=== PATIENT | female | born 1960 | race Caucasian/White ===

== ENCOUNTER → 2016-09-29 | Outpatient (CLI) | payer BC | LOC: WI 08:49 | PROVIDERS: ATTEND Internal Medicine Geriatric Medicine | DX: Z12.31 Encounter for screening mammogram for malignant neoplasm of breast (principal) | CPT/HCPCS: 77067; G0202 ==

== ENCOUNTER → 2016-11-18 | Outpatient (CLI) | payer BC ==
[2016-11-18 11:37] LABS: ABSOLUTE BASOPHILS # (AUTO) 0.1 10^3/uL (0.0-0.2); ABSOLUTE EOSINOPHILS # (AUTO) 0.1 10^3/uL (0.0-0.6); ABSOLUTE LYMPHOCYTES (AUTO) 1.9 10^3/uL (0.5-4.7); ABSOLUTE MONOCYTES (AUTO) 0.6 10^3/uL (0.1-1.4); ABSOLUTE NEUT (AUTO) 6.8 10^3/uL (1.7-8.2); BASOPHILS % (AUTO) 0.8 % (0-2); EOSINOPHILS % (AUTO) 1.6 % (0-6); HEMATOCRIT 35.7 % (36.0-47.0); HEMOGLOBIN 11.9 g/dL (12.0-15.5); LYMPHOCYTES % (AUTO) 19.8 % (13-45); MEAN CORPUSCULAR HEMOGLOBIN 27.2 pg (27.0-33.4); MEAN CORPUSCULAR HGB CONC 33.3 g/dL (32.0-36.0); MEAN CORPUSCULAR VOLUME 82 fl (80-97); MONOCYTES % (AUTO) 6.5 % (3-13); RED BLOOD COUNT 4.36 10^6/uL (3.72-5.28); RED CELL DISTRIBUTION WIDTH 13.7 % (11.5-14.0); SEGMENTED NEUTROPHILS % (AUTO) 71.3 % (42-78); WHITE BLOOD COUNT 9.4 10^3/uL (4.0-10.5)
[2016-11-18 11:53] LABS: ALANINE AMINOTRANSFERASE 44 U/L (9-52); ALBUMIN 4.4 g/dL (3.5-5.0); ALKALINE PHOSPHATASE 118 U/L (38-126); ANION GAP 13 (5-19); ASPARTATE AMINO TRANSFERASE 29 U/L (14-36); BILIRUBIN,DIRECT 0.2 mg/dL (0.0-0.4); BILIRUBIN,TOTAL 0.4 mg/dL (0.2-1.3); BLOOD UREA NITROGEN 20 mg/dL (7-20); CARBON DIOXIDE 30 mmol/L (22-30); CHLORIDE 99 mmol/L (98-107); CHOLESTEROL 242.63 mg/dL (0-200); CREATININE RESULT 0.83 mg/dL (0.52-1.25); Direct HDL 34 mg/dL (>40); GLUCOSE 118 mg/dL (75-110); SODIUM 142.2 mmol/L (137-145); TOTAL PROTEIN 7.1 g/dL (6.3-8.2); TRIGLYCERIDES 353 mg/dL (<150)
[2016-11-18 12:04] LABS: DIRECT LDL 119 mg/dL (<100)
[2016-11-18 12:08] LABS: POTASSIUM 4.9 mmol/L (3.6-5.0); VLDL CHOLESTEROL 70.6 mg/dL (10-31)
== END ==
LOC: OD 10:28
PROVIDERS: ATTEND Nurse Practitioner Psychiatric/Mental Health
DX: Z00.01 Encounter for general adult medical examination with abnormal findings (principal)
CPT/HCPCS: 36415; 80053; 80061; 84443; 85025

== ENCOUNTER → 2019-04-29 | Outpatient (CLI) | payer BC ==
[2019-04-29 17:05] LABS: ABSOLUTE BASOPHILS # (AUTO) 0.1 10^3/uL (0.0-0.2); ABSOLUTE EOSINOPHILS # (AUTO) 0.1 10^3/uL (0.0-0.6); ABSOLUTE LYMPHOCYTES (AUTO) 2.1 10^3/uL (0.5-4.7); ABSOLUTE MONOCYTES (AUTO) 0.7 10^3/uL (0.1-1.4); ABSOLUTE NEUT (AUTO) 10.7 10^3/uL (1.7-8.2); BASOPHILS % (AUTO) 0.6 % (0-2); HEMATOCRIT 37.8 % (36.0-47.0); HEMOGLOBIN 12.3 g/dL (12.0-15.5); LYMPHOCYTES % (AUTO) 15.6 % (13-45); MEAN CORPUSCULAR HEMOGLOBIN 27.4 pg (27.0-33.4); MEAN CORPUSCULAR HGB CONC 32.6 g/dL (32.0-36.0); MEAN CORPUSCULAR VOLUME 84 fl (80-97); MONOCYTES % (AUTO) 4.9 % (3-13); PLATELET COUNT 258 10^3/uL (150-450); RED BLOOD COUNT 4.49 10^6/uL (3.72-5.28); RED CELL DISTRIBUTION WIDTH 13.7 % (11.5-14.0); SEGMENTED NEUTROPHILS % (AUTO) 77.9 % (42-78); TOTAL CELLS COUNTED % (AUTO) 100 %; WHITE BLOOD COUNT 13.7 10^3/uL (4.0-10.5)
[2019-04-29 17:26] LABS: ALBUMIN 4.4 g/dL (3.5-5.0); ALKALINE PHOSPHATASE 102 U/L (38-126); AMYLASE 48 U/L (30-110); ANION GAP 12 (5-19); ASPARTATE AMINO TRANSFERASE 32 U/L (14-36); BILIRUBIN,DIRECT 0.2 mg/dL (0.0-0.4); BILIRUBIN,TOTAL 0.2 mg/dL (0.2-1.3); BLOOD UREA NITROGEN 38 mg/dL (7-20); C-REACTIVE PROTEIN 15.1 mg/L (<10.0); CARBON DIOXIDE 25 mmol/L (22-30); CHLORIDE 99 mmol/L (98-107); GLUCOSE 175 mg/dL (75-110); TOTAL PROTEIN 7.1 g/dL (6.3-8.2)
[2019-04-29 17:50] LABS: ERYTHROCYTE SEDIMENTATION RATE 31 mm/hr (0-30)
== END ==
LOC: LAB 16:46
PROVIDERS: ATTEND Family Medicine
DX: R10.9 Unspecified abdominal pain (principal)
CPT/HCPCS: 36415; 80053; 82150; 82977; 83690; 85025; 85652; 86140

== ENCOUNTER → 2019-04-30 | Outpatient (CLI) | payer BC ==
--- NOTE | 2019-04-30 20:56 | RADIOLOGY REPORT (SQ) ---
CT ABDOMEN PELVIS WITH IV CONTRAST EXAM DATE: 04/30/2019 5:05 PM CDT HISTORY: Abdominal pain. COMPARISON: 12/29/2014 TECHNIQUE: CT scan of the abdomen and pelvis was performed with IV contrast. This exam was performed according to our departmental dose-optimization program, which includes automated exposure control, adjustment of the mA and/or kV according to patient size and/or use of iterative reconstruction technique. FINDINGS: The lung bases are clear. No pleural or pericardial effusions. There has been a prior cholecystectomy. Liver, spleen, pancreas, adrenal glands, and kidneys are unremarkable. Simple cyst in the left kidney is seen. The uterus is atrophic. No small bowel obstruction. The appendix is normal. No evidence of acute diverticulitis. No adenopathy, free fluid, or free air is identified. Prior ventral hernia repair is noted. The aorta is normal caliber. There are mild degenerative changes of the spine. IMPRESSION: No acute abdominal or pelvic pathology.
== END ==
LOC: RAD 17:01
PROVIDERS: ATTEND Family Medicine
DX: R10.9 Unspecified abdominal pain (principal); Z90.49 Acquired absence of other specified parts of digestive tract
CPT/HCPCS: 74177

== ENCOUNTER 2019-11-04 16:46 | Emergency (ER) | payer SELFPAY ==
[2019-11-04] MEDS ORDERED: DIPHENHYDRAMINE HCL 25 MG CAPSULE PO ONE (17:41)
[2019-11-04] MEDS ORDERED: METOCLOPRAMIDE HCL 10 MG TABLET PO ONE (17:41)
--- NOTE | 2019-11-04 17:44 | ER Document Report ---
ED Medical Screen (RME) - General Chief Complaint: Headache Stated Complaint: HEADACHE Time Seen by Provider: 11/04/19 17:32 Primary Care Provider: VIKA KIRKPATRICK MD [Primary Care Provider] - Follow up as needed Mode of Arrival: Ambulatory Information source: Patient, Relative Notes: 59-year-old female with history of cluster headaches presents to the emergency department with complaints of a sharp headache pain on the left side of her confucianism that radiates into her jaw since earlier today. Reports she had some chest pressure last night that made her feel short of breath. Denies history of cardiac disease, denies history of stroke. Reports approximately 4 days ago she was evaluated and treated with prednisone for ear pressure. She reports she does have history of migraines but has not had to take care her Fioricet in many many months. She did take a Fioricet today and it did not relieve her symptoms. She also took Tylenol. Patient reports this is different from her typical migraine. She describes it as the worst headache she is ever had. Denies nausea and vomiting. at her side reports patient is acting normal. Denies confusion reports ambulating without problems. I have greeted and performed a rapid initial assessment of this patient. A comprehensive ED assessment and evaluation of the patient, analysis of test results and completion of the medical decision making process will be conducted by additional ED providers. TRAVEL OUTSIDE OF THE [place] IN LAST 30 DAYS: No - Related Data Allergies/Adverse Reactions: No Known Allergies Allergy (Verified 10/29/15 19:24) Past Medical History - Social History Frequency of alcohol use: None Drug Abuse: None - Past Medical History Cardiac Medical History: Reports: Hx Coronary Artery Disease, Hx Hypercholesterolemia, Hx Hypertension Denies: Hx Heart Attack Pulmonary Medical History: Denies: Hx Asthma, Hx Bronchitis, Hx COPD, Hx Pneumonia, Hx Tuberculosis Neurological Medical History: Reports: Hx Cerebrovascular Accident - LUE Weakness. Denies: Hx Seizures Endocrine Medical History: Reports: Hx Diabetes Mellitus Type 2 GI Medical History: Reports: Hx Gastroesophageal Reflux Disease Musculoskeltal Medical History: Reports Hx Arthritis - knees Psychiatric Medical History: Denies: Hx Depression Past Surgical History: Reports: Hx Appendectomy, Hx Cardiac Catheterization, Hx Cholecystectomy, Hx Tubal Ligation. Denies: Hx Hysterectomy - Immunizations Hx Diphtheria, Pertussis, Tetanus Vaccination: Yes Physical Exam - Vital signs Vitals: Temp Pulse Resp BP Pulse Ox 98.2 F 75 16 149/77 H 97 11/04/19 17:11 11/04/19 17:11 11/04/19 17:11 11/04/19 17:11 11/04/19 17:11 Course - Vital Signs Vital signs: Temp Pulse Resp BP Pulse Ox 98.2 F 75 16 149/77 H 97 11/04/19 17:11 11/04/19 17:11 11/04/19 17:11 11/04/19 17:11 11/04/19 17:11 Doctor's Discharge - Discharge Referrals: VIKA KIRKPATRICK MD [Primary Care Provider] - Follow up as needed
--- NOTE | 2019-11-04 18:19 | RADIOLOGY REPORT (SQ) ---
EXAM DESCRIPTION: CHEST 2 VIEWS COMPLETED DATE/TIME: 11/04/2019 6:02 pm REASON FOR STUDY: chest pressure COMPARISON: 10/29/2015 EXAM PARAMETERS: NUMBER OF VIEWS: two views TECHNIQUE: Digital Frontal and Lateral radiographic views of the chest acquired. RADIATION DOSE: NA LIMITATIONS: none FINDINGS: LUNGS AND PLEURA: No opacities, masses or pneumothorax. No pleural effusion. MEDIASTINUM AND HILAR STRUCTURES: No masses or contour abnormalities. HEART AND VASCULAR STRUCTURES: Heart normal size. No evidence for failure. BONES: No acute findings. HARDWARE: None in the chest. OTHER: No other significant finding. IMPRESSION: NO ACUTE RADIOGRAPHIC FINDING IN THE CHEST. TECHNICAL DOCUMENTATION: JOB ID: [id number] 2010 [employer]- All Rights Reserved Reading location - IP/workstation name: [email or web address]
--- NOTE | 2019-11-04 18:20 | RADIOLOGY REPORT (SQ) ---
EXAM DESCRIPTION: CT HEAD WITHOUT COMPLETED DATE/TIME: 11/04/2019 6:09 pm REASON FOR STUDY: jones- worse of life COMPARISON: None. TECHNIQUE: Axial images acquired through the brain without intravenous contrast. Images reviewed wi th bone, brain and subdural windows. Additional sagittal and coronal reconstructions were generated. Images stored on PACS. All CT scanners at this facility use dose modulation, iterative reconstruction, and/or weight based d osing when appropriate to reduce radiation dose to as low as reasonably achievable (ALARA). [facility]: Dose Right [facility]: CareDose [facility]: Dose Right [facility]: Teradose 4D [facility]: [employer] RADIATION DOSE: CT Rad equipment meets quality standard of care and radiation dose reduction techniq ues were employed. CTDIvol: 53.2 mGy. DLP: 937 mGy-cm. mGy. LIMITATIONS: None. FINDINGS: VENTRICLES: Normal size and contour. CEREBRUM: No masses. No hemorrhage. No midline shift. No evidence for acute infarction. Normal gra y/white matter differentiation. No areas of low density in the white matter. CEREBELLUM: No masses. No hemorrhage. No alteration of density. No evidence for acute infarction. EXTRAAXIAL SPACES: No fluid collections. No masses. ORBITS AND GLOBE: No intra- or extraconal masses. Normal contour of globe without masses. CALVARIUM: No fracture. PARANASAL SINUSES: No fluid or mucosal thickening. SOFT TISSUES: No mass or hematoma. OTHER: No other significant finding. IMPRESSION: NORMAL BRAIN CT WITHOUT CONTRAST. EVIDENCE OF ACUTE STROKE: NO. COMMENT: Quality ID # [id number]: Final reports with documentation of one or more dose reduction techniques (e.g., Automated exposure control, adjustment of the mA and/or kV according to patient size, use of iterative reconstruction technique) TECHNICAL DOCUMENTATION: JOB ID: [id number] 2010 [employer]- All Rights Reserved Reading location - IP/workstation name: [email or web address]
--- NOTE | 2019-11-04 18:48 | ER Document Report ---
ED General - General Mode of Arrival: Ambulatory TRAVEL OUTSIDE OF THE [place] IN LAST 30 DAYS: No <SORAIDA GEE - Last Filed: 11/04/19 20:23> <SHEYLA YAP - Last Filed: 11/04/19 23:47> - General Chief Complaint: Headache Stated Complaint: HEADACHE Time Seen by Provider: 11/04/19 17:32 Primary Care Provider: KACIE DESAI MD [ACTIVE STAFF] - Follow up as needed VIKA KIRKPATRICK MD [Primary Care Provider] - Follow up as needed Notes: HPI: 59-year-old female who presents today with the onset this morning around 8 AM of a headache to the left side of the head. She states it does radiate to the jaw. She denies any blurry or double vision. She denies any trauma or neck pain. She states that the headache is intermittent. No obvious aggravating or relieving factors. She states it does feel "sharp". Patient has a long history she states of cluster headaches. She states she has had them for "many, many years". She states she has not had one in greater than 1 year. Patient also states he had around 2 weeks ago of an upper respiratory tract infection. She was treated with antibiotics. She states she has had some b ilateral ear fullness over the last week and saw the primary care physician and started taking prednisone for 4 days secondary to bilateral ear fullness, left greater than right. Patient also states yesterday she had some nonspecific anterior chest discomfort that was intermittent. Not exertional. No shortness of breath, calf pain or leg swelling. She denies any and all chest pain today. She has had no complaints of abdominal discomfort, fevers, runny nose, congestion, or cough. ROS: See HPI All other review of systems reviewed and otherwise negative Reviewed vital signs and nursing note as charted by RN. PHYSICAL EXAM: CONSTITUTIONAL: Alert and oriented and responds appropriately to questions. Well-appearing; well-nourished HEAD: Normocephalic; atraumatic EYES: PERRL; Conjunctivae clear, full extraocular range of motion without nystagmus; sclerae non-icteric ENT: Normal nose; no rhinorrhea; moist mucous membranes; pharynx without lesions noted NECK: Supple without meningismus; non-tender; no cervical lymphadenopathy, no masses CARD: Regular rate and rhythm; no murmurs; symmetric distal pulses RESP: Normal chest excursion without splinting or tachypnea; breath sounds clear and equal bilaterally ABD/GI: Normal bowel sounds; non-distended; soft, non-tender BACK: The back appears normal and is non-tender to palpation EXT: Normal ROM in all joints; non-tender to palpation; no edema SKIN: No acute lesions noted NEURO: CN 2-12 intact; 5/5 bilateral upper and lower extremity strength with sensation intact to light touch PSYCH: The patient's mood and manner are appropriate. Grooming and personal hygiene are appropriate. (SORAIDA GEE) - Related Data Allergies/Adverse Reactions: No Known Allergies Allergy (Verified 10/29/15 19:24) Past Medical History - General Information source: Patient, Relative - Social History Smoking Status: Never Smoker Frequency of alcohol use: None Drug Abuse: None Family History: Reviewed & Not Pertinent Patient has suicidal ideation: No Patient has homicidal ideation: No - Past Medical History Cardiac Medical History: Reports: Hx Coronary Artery Disease, Hx Hypercholesterolemia, Hx Hypertension Denies: Hx Heart Attack Pulmonary Medical History: Denies: Hx Asthma, Hx Bronchitis, Hx COPD, Hx Pneumonia, Hx Tuberculosis Neurological Medical History: Reports: Hx Cerebrovascular Accident - LUE Weakness. Denies: Hx Seizures Endocrine Medical History: Reports: Hx Diabetes Mellitus Type 2 GI Medical History: Reports: Hx Gastroesophageal Reflux Disease Musculoskeletal Medical History: Reports Hx Arthritis - knees Psychiatric Medical History: Denies: Hx Depression Past Surgical History: Reports: Hx Appendectomy, Hx Cardiac Catheterization, Hx Cholecystectomy, Hx Tubal Ligation. Denies: Hx Hysterectomy - Immunizations Hx Diphtheria, Pertussis, Tetanus Vaccination: Yes <SORAIDA GEE - Last Filed: 11/04/19 20:23> Physical Exam - Vital signs Vitals: Temp Pulse Resp BP Pulse Ox 98.2 F 75 16 149/77 H 97 11/04/19 17:11 11/04/19 17:11 11/04/19 17:11 11/04/19 17:11 11/04/19 17:11 Course - Laboratory Result Diagrams: 11/04/19 18:36 11/04/19 18:36 <SORAIDA GEE - Last Filed: 11/04/19 20:23> - Laboratory Result Diagrams: 11/04/19 18:36 11/04/19 18:36 <SHEYLA YAP - Last Filed: 11/04/19 23:47> - Re-evaluation Re-evalutation: Given the above history and physical, patient had a cardiac panel started with an EKG as well as an x-ray of the chest and a CT scan of the head. TMs are clear bilaterally. No temporal erythema or tenderness. No double or blurry vision. Globes are soft. Pupils are quick and reactive. Patient has been af ebrile with no neck stiffness. I do believe temporal arteritis, acute angle- closure glaucoma, bacterial meningitis all to be extremely unlikely. I had a long discussion with the patient and her who are in the room. They both state that the patient has had intermittent cluster migraines for many many years. Patient's pain did start while she was attempting to have a bowel movement. She is out of the 6-hour 100% sensitivity window of the CT scan being able to diagnose subarachnoid hemorrhage with 100% sensitivity. I have explained this to the patient and her spouse. I have explained that I am able to rule out a great percentage of these cases, but I am unable to completely rule out this very daily diagnosis without performing a lumbar puncture. I have explained the risks and benefits of the lumbar puncture. Patient's headache has been intermittent with a long history of cluster-like migraine symptoms. This does decrease the pretest probability but the patient does state that this was a very bad headache and it did start while she was having a bowel movement. 11/04/19 18:46 Labs and imaging thus far as recorded. 11/04/19 18:50 EKG shows heart of 72, normal sinus rhythm, normal axis, no ST elevation or depression. 11/04/19 19:37 Continue long discussion with the patient and family. They have declined lumbar puncture. They do understand the risks and benefits. I have redosed the pain medications. 11/04/19 20:23 Miky-Pen pressures normal. Patient is walking around the emergency department going to the bathroom stating she feels better. They still declined lumbar puncture. A liter of fluid has been provided. Awaiting repeat troponin. Patient has had no chest pain since yesterday. (SORAIDA GEE) 11/04/19 23:42 The patient was signed out to me at shift change since she had a second Trop pending. Patient's first Trop was negative at 0.024 (it has been this high before) and her repeat Trop was 0.031 (still negative but slightly higher then the first but not significantly higher). The patient has not had chest pain since yesterday. Patient tells me she thinks she had a normal stress test about 5 years ago. Patient was told to follow up with her PCP and/or Cardiology and to have a repeat stress test. Patient's headache was much improved in the ER after treatment. Patient says she has frequent headaches but her home fioricet typically works well. Patient told to consider following up with a Neurologist as well for her chronic headaches. (SHEYLA YAP) - Vital Signs Vital signs: Temp Pulse Resp BP Pulse Ox 98.2 F 75 19 134/69 H 95 11/04/19 17:11 11/04/19 17:11 11/04/19 20:54 11/04/19 20:54 11/04/19 21:31 - Laboratory Laboratory results interpreted by me: 11/04/19 11/04/19 11/04/19 18:36 18:36 18:36 WBC 16.0 H Lymph % (Auto) 10.9 L Absolute Neuts (auto) 13.3 H Seg Neutrophils % 83.2 H Sodium 132.9 L Chloride 95 L BUN 30 H Glucose 332 H Calcium 10.3 H ALT 45 H Urine Glucose (UA) >=500 H Discharge <SORAIDA GEE - Last Filed: 11/04/19 20:23> <SHEYLA YAP - Last Filed: 11/04/19 23:47> - Discharge Clinical Impression: Headache Qualifiers: Headache type: unspecified Headache chronicity pattern: unspecified pattern Intractability: not intractable Qualified Code(s): R51 - Headache Chest pain Qualifiers: Chest pain type: unspecified Qualified Code(s): R07.9 - Chest pain, unspecified Condition: Stable Disposition: HOME, SELF-CARE Additional Instructions: Follow up with your primary care doctor and tell him about your ER visit for a headache and chest pain. Use your previously prescribed medications for headaches along with over the counter Tylenol and Motrin. You likely should have a repeat cardiac stress test since you think it has been 5 years since your last cardiac stress test. Speak with your doctor about setting up a cardiac stress test. Dr. Desai is a [employer] you can follow up with if you do not have one. Referrals: KACIE DESAI MD [ACTIVE STAFF] - Follow up as needed VIKA KIRKPATRICK MD [Primary Care Provider] - Follow up as needed
[2019-11-04 18:55] LABS: ABSOLUTE LYMPHOCYTES (AUTO) 1.7 10^3/uL (0.5-4.7); ABSOLUTE MONOCYTES (AUTO) 0.9 10^3/uL (0.1-1.4); ABSOLUTE NEUT (AUTO) 13.3 10^3/uL (1.7-8.2); BASOPHILS % (AUTO) 0.2 % (0-2); EOSINOPHILS % (AUTO) 0.1 % (0-6); HEMATOCRIT 36.6 % (36.0-47.0); HEMOGLOBIN 12.7 g/dL (12.0-15.5); LYMPHOCYTES % (AUTO) 10.9 % (13-45); MEAN CORPUSCULAR HEMOGLOBIN 28.4 pg (27.0-33.4); MEAN CORPUSCULAR HGB CONC 34.6 g/dL (32.0-36.0); MEAN CORPUSCULAR VOLUME 82 fl (80-97); MONOCYTES % (AUTO) 5.6 % (3-13); PLATELET COUNT 257 10^3/uL (150-450); RED BLOOD COUNT 4.46 10^6/uL (3.72-5.28); RED CELL DISTRIBUTION WIDTH 13.7 % (11.5-14.0); SEGMENTED NEUTROPHILS % (AUTO) 83.2 % (42-78); TOTAL CELLS COUNTED % (AUTO) 100 %
[2019-11-04 19:15] LABS: ALBUMIN 4.3 g/dL (3.5-5.0); ALKALINE PHOSPHATASE 126 U/L (38-126); ANION GAP 13 (5-19); ASPARTATE AMINO TRANSFERASE 36 U/L (14-36); BILIRUBIN,DIRECT 0.3 mg/dL (0.0-0.4); BILIRUBIN,TOTAL 0.3 mg/dL (0.2-1.3); BLOOD UREA NITROGEN 30 mg/dL (7-20); CALCIUM 10.3 mg/dL (8.4-10.2); CARBON DIOXIDE 25 mmol/L (22-30); CHLORIDE 95 mmol/L (98-107); GLUCOSE 332 mg/dL (75-110); POTASSIUM 4.4 mmol/L (3.6-5.0); TOTAL PROTEIN 7.5 g/dL (6.3-8.2)
[2019-11-04] MEDS ORDERED: MORPHINE SULFATE 10 MG/ML INJ IV ONE (19:29)
[2019-11-04] MEDS ORDERED: PROMETHAZINE HCL INJ 25 MG/1 ML VIAL IV ONE (19:29)
[2019-11-04] MEDS ORDERED: NORMAL SALINE 1000 ML 1,000 ML IV ONE (19:30)
[2019-11-04 21:42] LABS: APPEARANCE,URINE CLEAR; BILIRUBIN,URINE NEGATIVE (NEGATIVE); COLOR,URINE STRAW; GLUCOSE, URINE >=500 mg/dL (NEGATIVE); KETONES,URINE NEGATIVE (NEGATIVE); LEUKOCYTE ESTERASE,URINE NEGATIVE (NEGATIVE); NITRITE,URINE NEGATIVE (NEGATIVE); PROTEIN,URINE NEGATIVE (NEGATIVE); URINE SPECIFIC GRAVITY 1.012; UROBILINOGEN,URINE NEGATIVE mg/dL (<2.0)
--- NOTE | 2019-11-04 21:47 | EKG REPORT ---
SEVERITY:- NORMAL ECG - SINUS RHYTHM : Confirmed by: Cely Kilgore MD 04-Nov-2019 21:47:06
[2019-11-05 00:34] VITALS: BP 116/75
== END 2019-11-04 23:47 | disposition home or self-care (01) ==
LOC: ER 16:46
DX: R07.9 Chest pain, unspecified (principal); R51 Headache; R68.84 Jaw pain; I25.10 Atherosclerotic heart disease of native coronary artery without angina pectoris; I10 Essential (primary) hypertension; E11.9 Type 2 diabetes mellitus without complications
CPT/HCPCS: 93005; 99284; 96361; 96374; 96375; 36415; 85025; 80053; 81001; 84484; 71046; 70450; 93010; J2270; J2550; J7030

== ENCOUNTER → 2020-08-06 | Outpatient (CLI) | payer BC ==
--- NOTE | 2020-08-06 12:40 | WOMENS IMAGING REPORT ---
EXAM DESCRIPTION: BILAT SCREENING MAMMO W/CAD IMAGES COMPLETED DATE/TIME: 08/06/2020 11:36 am REASON FOR STUDY: Z12.31 ENCNTR SCREEN MAMMOGRAM FOR MALIGNANT NEOPLASM OF BREAST Z12.31 ENCNTR SCR EEN MAMMOGRAM FOR MALIGNANT NEOPLASM OF ODETTE COMPARISON: Priors dating back to 2013 EXAM PARAMETERS: Standard craniocaudal and mediolateral oblique views of each breast recorded using digital acquisition. Read with the assistance of CAD. .[facility] - [employer] Version 9.2 LIMITATIONS: None. FINDINGS: No suspicious masses, suspicious calcifications or architectural distortion. No areas of c oncern. IMPRESSION: NEGATIVE MAMMOGRAM. BIRADS 1 BREAST DENSITY: b. There are scattered areas of fibroglandular density. BIRAD: ASSESSMENT: 1 NEGATIVE RECOMMENDATION: ROUTINE SCREENING COMMENT: The patient has been notified of the results by letter per MQSA requirements. Additional no tification policies are in place for contacting patient with suspicious or incomplete findings. Quality ID #[id number]: The [employer] recommends an annual screening mammogram for women aged 40 years or over. This facility utilizes a reminder system to ensure that all patients receive reminder letters, and/or direct phone calls for appointments. This includes reminders for routine scr eening mammograms, diagnostic mammograms, or other Breast Imaging Interventions when appropriate. Th is patient will be placed in the appropriate reminder system. TECHNICAL DOCUMENTATION: FINDING NUMBER: (1) ASSESSMENT: (1) JOB ID: [id number] 2010 [employer]- All Rights Reserved Reading location - IP/workstation name: [email or web address]
== END ==
LOC: WI 11:12
PROVIDERS: ATTEND Internal Medicine Geriatric Medicine
DX: Z12.31 Encounter for screening mammogram for malignant neoplasm of breast (principal)
CPT/HCPCS: 77067